=== PATIENT | male | born 1995 | race Two or more races ===

== ENCOUNTER 2019-12-09 11:06 | Emergency (ER) | payer OTHER ==
[~2019-12-09] VITALS: Ht 167.6 cm; Wt 54.4 kg
== END 2019-12-09 13:18 | disposition home or self-care (01) ==
LOC: ER 11:06
DX: S10.83XS Contusion of other specified part of neck, sequela (principal); S60.211S Contusion of right wrist, sequela; S40.011S Contusion of right shoulder, sequela; V29.88XS Motorcycle rider (driver) (passenger) injured in other specified transport accidents, sequela

== ENCOUNTER 2020-09-28 10:31 | Emergency (ER) | payer OTHER ==
[~2020-09-28] VITALS: Ht 167.6 cm; Wt 54.4 kg
[2020-09-28] MEDS ORDERED: ZITHROMAX TRI-500 MG PO (14:22)
== END 2020-09-28 14:44 | disposition home or self-care (01) ==
LOC: ER 10:31
DX: R30.0 Dysuria (principal); B96.0 Mycoplasma pneumoniae [M. pneumoniae] as the cause of diseases classified elsewhere; N48.29 Other inflammatory disorders of penis; B96.89 Other specified bacterial agents as the cause of diseases classified elsewhere; Z03.818 Encounter for observation for suspected exposure to other biological agents ruled out